=== PATIENT | female | born 1960 | race Caucasian/White ===

== ENCOUNTER 2022-03-16 16:05 | Emergency (ER) | payer BC ==
[~2022-03-16] VITALS: Ht 165.1 cm; Wt 61.2 kg
[~2022-03-16 16:05] MED LIST: DAILY MULTIPLE1 EACH PO; IBUPROFEN200 MG PO; IBUPROFEN800 MG PO; NORCO 5-325 TA1 EACH PO; VITAMIN D5000 UNIT PO
== END 2022-03-16 20:48 | disposition short-term general hospital (02) ==
LOC: ED 16:05
DX: S72.141A Displaced intertrochanteric fracture of right femur, initial encounter for closed fracture (principal); Z20.822 Contact with and (suspected) exposure to COVID-19; W19.XXXA Unspecified fall, initial encounter
CPT/HCPCS: 36415; 73502; 80053; 85025; 85060; 87502; 99284-25; U0003

== ENCOUNTER 2023-03-05 07:25 | Day surgery (SDC) | payer BC ==
[~2023-03-05] VITALS: Ht 165.1 cm; Wt 55.8 kg
[~2023-03-05 07:25] MED LIST changes: +ADRENOID CAPSU1 EACH PO; +CALCIUM500 MG PO; +LIPOTRIAD VISI1 EAC1 PO; +PROBIOTIC1 EAC2 PO; +TURMERIC500 M3 PO
[2023-03-05 07:45] VITALS: BP 124/79
--- NOTE | 2023-03-05 09:11 | NUR ---
03/05/23 0911 Meeta Núñez 0851-PT TO PACU IN LL POSITION. EYES CLOSED. RESPONDS TO VERBAL AND TACTILE STIMULI. DENIES PAIN AND FALLS QUICKLY BACK TO SLEEP. BREATHING EASY AND UNLABORED. SPO2 >95% ON 2L O2 VIA NC. 0900-PT RESTING COMFORTABLE. AWAKENS TO VERBAL STIMULI AND FALLS QUICKLY BACK TO SLEEP WITHOUT RN STIMULI. BREATHING EASY AND UNLABORED. SPO2 >95% ON 2 L O2 VIA NC. 0908-PT TALKING WITH MD AT BEDSIDE. ASKING QUESTIONS APPROPRIATELY. BREATHING EASY AND UNLABORED. SPO2 >95% . O2 TITRATED DOWN TO ROOM AIR. PT ENCOURAGED TO PASS GAS. PT DENIES PAIN AND NAUSEA.
[2023-03-05 09:46] VITALS: BP 109/74
--- NOTE | 2023-03-08 11:44 | OR ---
[facility] [address], [place] [address] Signed DATE OF OPERATION: 03/05/2023 SURGEON: Solo Matamoros MD PREOPERATIVE DIAGNOSES: 1. Colon screening. 2. Family history of colon cancer, first cousin. POSTOPERATIVE DIAGNOSIS: Normal colon to cecum. PROCEDURE: Total colonoscopy to cecum. ANESTHESIA: Intravenous sedation, fentanyl 150 mcg, Versed 6 mg. INDICATIONS FOR THE PROCEDURE: This 62-year-old white woman is a patient of Dr. Yung Toro. She is referred for colon screening. She last underwent colonoscopy in 2009. She does have family history of colon cancer in her first cousin, but no first-degree relatives with colon cancer. She is admitted to undergo colonoscopy. She understands the risk of bleeding, infection, and perforation. FINDINGS: The prep was excellent. Complete colonoscopy was undertaken of the cecum. There was no evidence of polyps, diverticular formation, colitis, or cancer. DESCRIPTION OF PROCEDURE: The patient was brought to the endoscopy suite and placed in lateral decubitus position given intravenous sedation to the point of slurred speech and nystagmus. Digital rectal examination was normal. An Olympus video colonoscope was passed into the rectum and manipulated throughout the colon, ultimately intubating the cecum itself. The ileocecal valve and appendiceal orifice were normal. The scope was withdrawn from that point. Examination throughout showed no sign of abnormality, specifically no polyps, diverticular formation, colitis, or cancer. Retroflexed view was normal as well. The scope was removed. The patient was taken to the recovery room in good condition. Electronically Signed By: SOLO MATAMOROS MD 03/08/23 1144 PATIENT NAME: OMARI GATES OPERATIVE REPORT DATE OF : 58 REPORT #: [id number] PHYSICIAN: SOLO MATAMOROS MD PCP: YUNG TORO MD REPORT IS CONFIDENTIAL AND NOT TO BE RELEASED WITHOUT AUTHORIZATION [facility] [address], [place] [address] Signed CONCLUDING DIAGNOSIS: Normal colon. PLAN: Recommend repeat colonoscopy in 10 years or sooner if clinically indicated. She will return to the ongoing care of Dr. Yung Toro. MD JARRETT Sullivan/DAVIDL /[id number] cc: Yung Toro MD Copies: YUNG TORO MD ~ Electronically Signed By: SOLO MATAMOROS MD 03/08/23 1144 PATIENT NAME: OMARI GATES OPERATIVE REPORT DATE OF : 58 REPORT #: [id number] PHYSICIAN: SOLO MATAMOROS MD PCP: YUNG TORO MD REPORT IS CONFIDENTIAL AND NOT TO BE RELEASED WITHOUT AUTHORIZATION
== END 2023-03-05 09:50 | disposition home or self-care (01) ==
LOC: DS 07:25 → OPS 07:25 → DS 08:30 → OPS 09:50
PROVIDERS: ATTEND Surgery
PROC: 0DJD8ZZ Inspection of Lower Intestinal Tract, Via Natural or Artificial Opening Endoscopic (ICD-10-PCS; principal; 2023-03-05 08:30)
DX: Z12.11 Encounter for screening for malignant neoplasm of colon (principal); Z80.0 Family history of malignant neoplasm of digestive organs; Z78.0 Asymptomatic menopausal state; Z90.81 Acquired absence of spleen
CPT/HCPCS: 99153; G0500; J2250; J3010